=== PATIENT | male | born 1950 | race Caucasian/White ===

== ENCOUNTER → 2018-01-28 | Outpatient (CLI) | payer MEDICARE, OTHER | END | disposition home or self-care (01) | LOC: LAB SHORT 14:07 → LAB EV 14:07 | DX: J02.9 Acute pharyngitis, unspecified (principal) | CPT/HCPCS: 87070; 87077; 87185 ==

== ENCOUNTER 2019-05-08 12:12 | Inpatient (IN) | payer MEDICARE, OTHER ==
[~2019-05-08] VITALS: Ht 175.3 cm; Wt 83.1 kg
[2019-05-08 13:06] LABS: BASOPHILS ABSOLUTE AUTO 0.11 K/mm3 (0.00-0.23); BASOPHILS PERCENT AUTO 1 % (0-2); EOSINOPHILS ABSOLUTE AUTO 0.47 K/mm3 (0.00-0.68); EOSINOPHILS PERCENT AUTO 6 % (0-6); Hematocrit 49.5 % (37.0-53.0); Hemoglobin 17.1 g/dL (13.5-17.5); IMMATURE GRAN ABSOLUTE AUTO 0.04 K/mm3 (0.00-0.10); IMMATURE GRAN PERCENT AUTO 1 % (0-1); LYMPHOCYTES ABSOLUTE AUTO 2.52 K/mm3 (0.84-5.20); LYMPHOCYTES PERCENT AUTO 30 % (21-46); MONOCYTES ABSOLUTE AUTO 0.67 K/mm3 (0.16-1.47); MONOCYTES PERCENT AUTO 8 % (4-13); Mean Corpuscular HGB 31.3 pg (26.0-34.0); Mean Corpuscular HGB Conc 34.5 g/dL (31.5-36.5); Mean Corpuscular Volume 91 fL (80-100); Mean Platelet Volume 11.1 fL (9.1-12.4); NEUTROPHILS PERCENT AUTO 55 % (41-73); Platelet Count 203 K/mm3 (150-400); RDW Coefficient Variation 12.4 % (11.7-14.2); RDW Standard Deviation 40.4 fL (35.1-46.3); Red Blood Cell Count 5.46 M/mm3 (4.30-5.90); White Blood Cell Count 8.41 K/mm3 (4.00-11.30)
[2019-05-08 13:27] LABS: Alanine Aminotransfer (ALT/SGP 26 U/L (12-78); Albumin, Blood 4.2 g/dL (3.4-5.0); Albumin/Globulin Ratio 1.4 (0.8-1.8); Alk Phos 70 U/L (50-136); Anion Gap 9 mmol/L (6-16); Aspartate Aminotrans (AST/SGOT 17 U/L (12-37); Blood Urea Nitrogen 12 mg/dL (8-24); Bun/Creatinine Ratio 11.9 (12.0-20.0); CO2, Blood 21 mmol/L (21-32); Calcium, Blood 9.2 mg/dL (8.5-10.1); Chloride, Blood 111 mmol/L (98-108); Creatinine, Blood 1.01 mg/dL (0.60-1.20); Globulin, Blood 3.1 g/dL (2.2-4.0); Glomerular Filtration Rate >60 (60-); Glucose, Blood 132 mg/dL (70-99); Potassium, Blood 3.9 mmol/L (3.5-5.5); Sodium, Blood 141 mmol/L (136-145); Total Protein, Blood 7.3 g/dL (6.4-8.2); Troponin I <0.015 ng/mL (0.000-0.040)
--- NOTE | 2019-05-08 13:45 | NUR ---
PATIENT ARRIVED TO ROOM ICU 12 VIA HOSPITAL BED AFTER REPORT WAS CALLED TO THIS RN BY GABRIELA MANN, RN, [facility], PATIENT WAS PLACED ON HEART MONITOR, RIGHT GROIN/FEMORAL SITE C/D/I, 15 FR SHEATH STILL IN GROIN, LAST ACT WAS 386, PTT ORDERED AND WILL BE DRAWN, SHEATH TO BE PULLED WHEN PTT LESS THAN 180, PATIENT WAS INSTRUCTED TO LIE FLAT AND NOT RAISE HIS HEAD, VERBALIZED UNDERSTANDING, AT BEDSIDE, BOTH WERE ORIENTED TO ROOM AND NEW ENVIRONMENT, CALL LIGHT GIVEN AND EXPLAINED, ALL QUESTIONS ANSWERED, PATIENT HAD SIPS OF ICE WATER, CALL LIGHT IN REACH, WILL CONTINUE TO MONITOR.
[2019-05-08] MEDS ORDERED: ESOM20 PO (14:11)
--- NOTE | 2019-05-08 14:45 | NUR ---
PATIENT TO USE URINAL, ASSISTING, NOTIFIED THIS RN THAT THERE WAS SOME OOZING/BLEEDING AROUNG SHEATH/R GROIN SITE, SLIGHT OOZING NOTED, WASH CLOTH IN PLACE, PATIENT INSTRUCTED TO USE CALL LIGHT, WHEN HE FEELS WARMTH, BURNING, AND OTHER SENSATIONS AT GROIN SITE, CALL LIGHT IN REACH, WILL CONTINUE TO MONITOR.
--- NOTE | 2019-05-08 15:18 | NUR ---
GROIN SITE SHOWS NO MORE ACTIVE OOZING AT THIS TIME, PATIENT RESTING COMFORTABLY, DENIES PAIN, CHEST PAIN/PRESSURE, OR ANY KIND OF DISCOMFORT.
--- NOTE | 2019-05-08 15:49 | NUR ---
GROIN SITE OOZING AT THIS TIME, SMALL HEMATOMA NOTED ON INCISION SITE, DR. WATERMAN NOTIFIED, WILL COME TO BEDSIDE.
--- NOTE | 2019-05-08 16:00 | NUR ---
URIEL HAWTHORNE, [facility] AT BEDSIDE, TOOK ACT VIA I-STAT, RESULT 153, DR. WATERMAN ALSO AT BEDSIDE, DECISION WAS MADE TO PULL SHEATH, HALEY CLOSING DEVICE AT BEDSIDE, 4X4'S, SUTURE REMOVAL KIT, 15 FR SHEATH WAS PULLED BY URIEL HAWTHORNE, AT 1613 HOURS, AFTER PATIENT RECEIVED 25 MCG OF FENTANYL IV, MARINE HELD PRESSURE FOR 10 MINUTES, THEN THIS RN TOOK OVER AND HELD PRESSURE FOR ANOTHER 10-15 MINUTES, SWELLING OF HEMATOMA WAS MINIMIZED, BLEEDING STOPPED/HEMOSTASIS ACHIEVED AT 1640, NEW HALEY DEVICE APPLIED TO GROIN SITE AND OCCLUDED WITH OPSITE, PATIENT TOLERATED PROCEDURE WELL, STATED THAT HIS PAIN WAS "0.5" OF A SCALE FROM 0-10, INSTRUCTED TO HOLD PRESSURE ON SITE WHEN HE FEELS THE NEED TO COUGH, NEW GOWN APPLIED AND SHEETS CHANGED, DAUGHTER AT BEDSIDE, CALL LIGHT IN REACH, WILL CONTINUE TO MONITOR.
[2019-05-08 16:51] LABS: International Normalized Ratio 1.09; Prothrombin Time Results 11.5 Sec (9.7-11.5)
--- NOTE | 2019-05-08 17:19 | NUR ---
PATIENT PALCED IN SLIGHT REVERSED [place] POSITION TO EAT DINNER, DAUGHTER AT BEDSIDE ASSISTING WITH TRAY.
--- NOTE | 2019-05-08 17:49 | NUR ---
SHIFT SUMMARY REPORT: PATIENT IS RESTING COMFORTABLY AT THIS TIME AFTER EATING ALL OF HIS DINNER, REMAINS IN REVERSE [place], RIGHT GROIN SITE HAS HALEY DEVICE APPLIED WITH OPSITE, NO DRNG NOTED, NO HEMATOMA PALPABLE, SLIGHT BRUISING BELOW INCISION SITE, PATIENT DENIES PAIN AT SITE, REPORTS NO CHEST PAIN/PRESSURE, AFEBRILE, ON RA 99 % O2 SATURATION, NSR WITH HR IN 60'S TO 70'S, BLOOD PRESSURE IN 130'S, FOR DETAILS SEE ADMISSION AND SHIFT ASSESSMENT DOCUMENTATIONS AND NURSES NOTES, CALL LIGHT IN REACH, WILL CONTINUE TO MONITOR AND GIVE REPORT TO ONCOMING CENTER LINE CUTTER OPERATOR.
--- NOTE | 2019-05-08 19:27 | NUR ---
[place] of Care: Patient alert and oriented, lying flat in bed, visiting with family. States to have very mild chest pain/discomfort 0.3/10, that has came/went since leaving the seed analysis laboratory assistant. Michael dyspnea or SOB, VSS. Patient instructed to inform staff of any increase or change in chest pain/discomfort, and any onset of dyspnea/SOB. Rt groin arterial access site has ciara gauze and clear occlusive dressing in place. Dressing appears C/D/I. Groin site shows small hematoma beneath insertion site, but overall soft and shows no s/s of active bleeding. Day shift RN states this hematoma has been present and stayed same size since sheath removal. Patient instructed to remain lying flat in bed, to not left head/neck, and keep rt leg immobile. Plan to start increasing patient's 's HOB at approc 2030hr if groin site remains stable. Peripheral IV's x2 to lt arm patent and intact. Call light in reach. Will continue to monitor for pain, safety, comfort.
--- NOTE | 2019-05-09 06:29 | NUR ---
Shift Summary: Patient slept well throughout shift. No changes to chest pain/pressure throughout shift, continues to rate at 0.3/10. Continues to deny dyspnea/SOB. VSS, O2-94-96% on RA. Rt groin site remains wnl, no s/s of active bleeding or hematoma noted. HOB elevated several times throughout shift, but patient mostly wished to lay flat and sleep. Voiding using urinal in bed without difficulty. Call light in reach, makes needs known. Will continue to monitor until report to day shift RN.
--- NOTE | 2019-05-09 08:30 | NUR ---
INITIAL ASSESSMENT PATIENT RESTING IN BED QUIETLY UPON ENTERING ROOM. PATIENT ALERT AND ORIENTED X 4, AFEBRILE. PATIENT HAS NO COMPLAINTS OF PAIN. PATIENT SATTING 90% AND GREATER ON RA. LUNGS CLEAR T/O, LOWER LOBES DIMINISHED. PATIENT IN SINUS SONIA/ SINUS ARRHYTHMIA. HR 50S TO 70S. BP STABLE. PULSES STRONG. GI WNL. WNL. R GROIN SITE REMAINS STABLE. SMALL BRUISE AND HEMATOMA NOTED- UNCHANGED PER RANCH RIDER RN. NO BLEEDING NOTED. IVS FLUSHED AND SALINE LOCKED. AT BEDSIDE. BED LOW, CALL LIGHT IN REACH. WILL CONTINUE TO MONITOR PATIENT FREQUENTLY THROUGHOUT SHIFT.
[2019-05-09 10:36] LABS: BASOPHILS ABSOLUTE AUTO 0.05 K/mm3 (0.00-0.23); BASOPHILS PERCENT AUTO 0 % (0-2); EOSINOPHILS ABSOLUTE AUTO 0.08 K/mm3 (0.00-0.68); EOSINOPHILS PERCENT AUTO 1 % (0-6); Hematocrit 47.3 % (37.0-53.0); IMMATURE GRAN ABSOLUTE AUTO 0.05 K/mm3 (0.00-0.10); IMMATURE GRAN PERCENT AUTO 0 % (0-1); LYMPHOCYTES ABSOLUTE AUTO 1.29 K/mm3 (0.84-5.20); LYMPHOCYTES PERCENT AUTO 12 % (21-46); MONOCYTES ABSOLUTE AUTO 0.91 K/mm3 (0.16-1.47); MONOCYTES PERCENT AUTO 8 % (4-13); Mean Corpuscular HGB 31.3 pg (26.0-34.0); Mean Corpuscular HGB Conc 33.8 g/dL (31.5-36.5); Mean Corpuscular Volume 93 fL (80-100); Mean Platelet Volume 10.8 fL (9.1-12.4); NEUTROPHILS ABSOLUTE AUTO 8.74 K/mm3 (1.96-9.15); NEUTROPHILS PERCENT AUTO 79 % (41-73); Platelet Count 192 K/mm3 (150-400); RDW Coefficient Variation 12.5 % (11.7-14.2); RDW Standard Deviation 42.7 fL (35.1-46.3); Red Blood Cell Count 5.11 M/mm3 (4.30-5.90); White Blood Cell Count 11.12 K/mm3 (4.00-11.30)
[2019-05-09 10:58] LABS: CHOL/HDL RATIO 3.6; Cholesterol 175 mg/dL (50-200); HDL Cholesterol 49 mg/dL (>39); LDL/HDL RATIO 2.1; Low Density Lipoprotein Chol 104 mg/dL (0-110); Triglycerides 112 mg/dL (30-160); Very Low Density Lipoprot Chol 22 mg/dL (6-32)
--- NOTE | 2019-05-09 11:15 | NUR ---
PATIENT HAS BEEN OOB TO CHAIR. R FEMORAL SITE REMAINS WNL- NO CHANGES SINCE INITITAL ASSESSMENT. WILL CONTINUE TO MONITOR.
--- NOTE | 2019-05-09 12:01 | NUR ---
SPECIAL PROCEDURE TECH IN ROOM WITH PATIENT AT THIS TIME. PATIENT REMAINS ALERT AND ORIENTED X 4, AFEBRILE. PATIENT HAS NO COMPLAINTS OF PAIN OR DISCOMFORT AT THIS TIME. PATIENT REMAINS SATTING 90% AND GREATER ON RA. LUNGS CLEAR THROUGHOUT. PATIENT HAS SINUS ARRYTHMIA, HR 50S TO 70S. BP STABLE. ANTI-EMBOLISM STOCKINGS IN PLACE. PATIENT TOLERATING MEALS WELL TODAY. NO COMPLAINTS OF NAUSEA. GOOD UO. PATIENT OOB TO CHAIR THIS SHIFT WITH SBA. NO CHANGE TO R FEMORAL SITE- REMAINS WNL. NO OTHER ACUTE CHANGES TO NOTE ON AT THIS TIME. WILL CONTINUE TO MONITOR.
--- NOTE | 2019-05-09 13:06 | NUR ---
Echocardiogram completed.
--- NOTE | 2019-05-09 17:00 | NUR ---
PATIENT RESTING QUIETLY IN BED, VISITING WITH UPON ENTERING ROOM. PATIENT REMAINS AFEBRILE. NO COMPLAINTS OF PAIN OR DISCOMFORT. R FEMORAL SITE BRUISING SLIGHTLY DARKER AND LARGER THAN AT PREVIOUS ASSESSMENT. NO INCREASE IN HEMATOMA AND NO BLEEDING NOTED. PATIENT REMAINS IN SINUS ARRHYTHMIA, HR 50S TO 70S. BP STABLE. NO OTHER ACUTE CHANGES TO NOTE ON AT THIS TIME. WILL CONTINUE TO MONITOR.
--- NOTE | 2019-05-09 18:36 | NUR ---
SHIFT SUMMARY PATIENT REMAINED ALERT AND ORIENTED T/O SHIFT. PATIENT REMAINED AFEBRILE. PATIENT SBA IN ROOM WITH EITHER OR STAFF. PATIENT REMAINED SATTING 90% AND GREATER ON RA. PATIENT IN SB TO SINUS ARRHYTHMIA. HR 50S TO 70S, BP STABLE. GI WNL. PATIENT HAS GOOD APPETITE. PATIENT HAD MEDIUM, HARD, BROWN BM THIS SHIFT. PATIENT VOIDED ADEQUATE AMOUNT THIS SHIFT. R FEMORAL SITE REMAINS WNL. SMALL HEMATOMA NOTED, HOWEVER HAS REMAINED UNCHANGED SINCE SHIFT HANDOFF THIS AM. SMALL INCREASE IN BRUISING WELL. NO BLEEDING THIS SHIFT. IVS REMAIN SALINE LOCKED. BED LOW, CALL LIGHT IN REACH. AT BEDSIDE. WILL BE GIVING REPORT TO POULTRY OFFAL WORKER NURSE SHORTLY.
--- NOTE | 2019-05-09 19:26 | NUR ---
START OF SHIFT: REPORT FROM CHANTAL RN. PT A+O X4, VSS. RIGHT GROIN ASSESSED BY BOTH RN'S AND REPORTED SAME AND WITH NO CHANGES FROM THIS AM. PT WITH CALL LIGHT IN HAND. SPOUSE AT BEDSIDE.
--- NOTE | 2019-05-09 19:56 | NUR ---
START OF SHIFT: REPORT FROM CHANTAL TREVINO. PT A+O X4, VSS. R GROIN ASSESSED AND WITH BRUISING BUT IS SOFT AND NO DRAINAGE TO DRESSING. CHANTAL TREVINO STATED SITE WITH NO CHANGES FROM THIS AM. PT WITH CALL LIGHT. SPOUSE AT BEDSIDE.
--- NOTE | 2019-05-09 22:03 | NUR ---
R GROIN CHECK. NO CHANGES. REMAINS SOFT WITH NO SWELLING OR DRAINAGE NOTED.
--- NOTE | 2019-05-10 02:07 | NUR ---
LAB DRAWN: PT AWAKENED EASILY. PLEASANT, NO COMPLAINTS. STATED LEWIS PAIN DOWN TO 2/10. R GROIN SITE REMAINS UNCHANGED FROM INITIAL ASSESSMENT. PT SPOUSE REMAINS IN ROOM.
--- NOTE | 2019-05-10 06:23 | NUR ---
SHIFT SUMMARY: PT RESTED T/O NOC WITHOUT ANY C/O PAIN, CP, SOB, OR ANY OTHER DISCOMFORTS. VSS. GROIN SITE REMAINED UNCHANGED FROM START OF SHIFT. MN REMAINED IN SINUS ARRHYTHMIA WITHOUT S/S.
--- NOTE | 2019-05-10 08:35 | NUR ---
PT AWAKE AND ALERT SITTING UP IN BED. DENIES ALL C/O, DENIES CHEST PAIN/PRESSURE. RIGHT GROIN STABLE WITH SOME BRUISING NOTED TO GROIN AREA; NO SWELLING, HEMATOMA, OR BLEEDING. POSSIBLE DC HOME TODAY.
--- NOTE | 2019-05-10 09:14 | NUR ---
DR WATERMAN INTO SEE PT. PT TO BE DC'D HOME. PT WALKED AROUND UNIT W/O ANY DIFFICULTIES.
[2019-05-10] MEDS ORDERED: LOSA50 PO (10:33)
[2019-05-10] MEDS ORDERED: ATOR80 PO (10:56)
[2019-05-10] MEDS ORDERED: Aspir-Trin325 MG PO (10:56)
[2019-05-10] MEDS ORDERED: METO25 PO (10:57)
[2019-05-10] MEDS ORDERED: Nitrostat0.4 MG SL (10:59)
[2019-05-10] MEDS ORDERED: BRILINTA90 MG PO (10:59)
[2019-05-10] MEDS ORDERED: ACET325 PO (11:30)
--- NOTE | 2019-05-10 11:53 | NUR ---
DISCHARGE INSTRUCTIONS: WRITTEN AND VERBAL DISCHARGE INSTRUCTIONS GIVEN TO PT AND HIS (RACHAEL). DISCUSSED ALL NEW MEDICATIONS. OFFERRED FOR PHARMACY TO MEET WITH PT FOR NEW MEDICATION EDUCATION. PT DECLINED A THIS TIME. IV'S D/C'D, CATHS INTACT. SITES WRAPPED WITH COBAN. DISCHARGE ACTIVITY INSTRUCTIONS REVIEWED FOR POST FEMORAL ANGIOGRAM AND WRITTEN INSTRUCTIONS SENT WITH PT. PT DISCHARGED VIA W/C PER GRACIELA MARKS TO PRIVATE CAR.
== END 2019-05-10 11:55 | disposition home or self-care (01) | DRG 247 ==
LOC: ER 12:12 → ICUW 12:13
PROVIDERS: Emergency Medicine; ADMIT Internal Medicine Clinical Cardiac Electrophysiology
PROC: 027034Z Dilation of Coronary Artery, One Artery with Drug-eluting Intraluminal Device, Percutaneous Approach (ICD-10-PCS; principal; 2019-05-08)
PROC: 4A023N7 Measurement of Cardiac Sampling and Pressure, Left Heart, Percutaneous Approach (ICD-10-PCS; 2019-05-08)
PROC: B2111ZZ Fluoroscopy of Multiple Coronary Arteries using Low Osmolar Contrast (ICD-10-PCS; 2019-05-08)
DX: I21.09 ST elevation (STEMI) myocardial infarction involving other coronary artery of anterior wall (principal); Q21.1 Atrial septal defect; I10 Essential (primary) hypertension; E78.00 Pure hypercholesterolemia, unspecified; J44.9 Chronic obstructive pulmonary disease, unspecified; K21.9 Gastro-esophageal reflux disease without esophagitis; Z88.8 Allergy status to other drugs, medicaments and biological substances; E78.5 Hyperlipidemia, unspecified; Z79.82 Long term (current) use of aspirin
CPT/HCPCS: 36415; 71045; 80053; 80061; 83036; 84484; 85025; 85347; 85610; 85730; 93005; 93010; 93458; 99152; 99153; 99285-25; A9270; C1725; C1769; C1874; C1887; C1894; C8929; C9606; J0461; J1644; J2250; J3010; J3246; J7030; Q9957; Q9967

== ENCOUNTER 2020-09-10 05:56 | Day surgery (SDC) | payer MEDICARE, OTHER ==
[~2020-09-10] VITALS: Ht 170.2 cm; Wt 84.7 kg
[~2020-09-10 05:56] MED LIST: ACET325 PO; ATOR20 PO; ATOR80 PO; Aspir-Trin325 MG PO; BRILINTA90 MG PO; ESOM20 PO; LATA.005SO BOTHEYES; LOSA50 PO; METO25 PO; Nitrostat0.4 MG SL
--- NOTE | 2020-09-10 07:03 | NUR ---
Ambulatory in Day Surgery History, Chart, Medications and Allergies reviewed before start of procedure. Lungs clear T/O to Auscultation. Pre-Op teaching done. Pt verbalizes understanding.
--- NOTE | 2020-09-10 10:46 | NUR ---
PT ARRIVED FROM SURGERY AT 1030 ON 09/10/2020. HE HAD A RIGHT TOTAL HIP REPLACEMENT. HE IS ALERT AND ORIENTED X4. VITAL SIGNS ARE WNL AND IS ON RA. PAIN IS CONTROLLED AT THIS TIME. BOTH LEFT AND RIGHT AQUACEL ARE C/D/I. PT DENIES NUMBNESS AND TINGLING AT THIS TIME. HE HAS FULL SENSATIONS. NO NAUSEA OR VOMITING. PT IS CURRENTLY LAYING IN BED AND IS TOLERATING PO DRINKS AND CRACKERS. IS IN THE ROOM WITH HIM. WILL CONTINUE TO MONITOR PAIN AND HIS VITALS.
--- NOTE | 2020-09-10 18:27 | NUR ---
SHIFT SUMMARY: POD 0 RIGHT TOTAL HIP REPLACEMENT PT IS ALERT AND ORIENTED X4. VITAL SIGNS ARE WNL AND IS ON RA. HE DOES NOT COMPLAIN OF PAIN AT THIS TIME. I HAVE ONLY GIVEN HIM WHAT HAS BEEN SCHEDULED WHICH IS THE TORADOL AND TYLENOL. HE HAS GOTTEN UP WITH PHYSICAL THERAPY AND WITH ME IN THE HALLWAY. AQUACEL ON BOTH LEGS ARE C/D/I. THE BIGGER AQUACEL IS ON THE RIGHT HIP. HE IS A VERY PLEASANT PATIENT TO HAVE. IS IN THE ROOM AND WILL BE LEAVING AROUND 7. CALL LIGHT IS WITHIN REACH. THE PLAN IS TO CONTINUE TO WORK WITH PHYSICAL THERAPY.
[2020-09-11 04:43] LABS: BASOPHILS ABSOLUTE AUTO 0.03 K/mm3 (0.00-0.23); BASOPHILS PERCENT AUTO 0 % (0-2); EOSINOPHILS ABSOLUTE AUTO 0.12 K/mm3 (0.00-0.68); EOSINOPHILS PERCENT AUTO 1 % (0-6); Hematocrit 37.6 % (37.0-53.0); Hemoglobin 12.9 g/dL (13.5-17.5); IMMATURE GRAN ABSOLUTE AUTO 0.08 K/mm3 (0.00-0.10); IMMATURE GRAN PERCENT AUTO 1 % (0-1); LYMPHOCYTES ABSOLUTE AUTO 1.21 K/mm3 (0.84-5.20); LYMPHOCYTES PERCENT AUTO 10 % (21-46); MONOCYTES ABSOLUTE AUTO 1.13 K/mm3 (0.16-1.47); MONOCYTES PERCENT AUTO 9 % (4-13); Mean Corpuscular HGB 31.8 pg (26.0-34.0); Mean Corpuscular HGB Conc 34.3 g/dL (31.5-36.5); Mean Corpuscular Volume 93 fL (80-100); Mean Platelet Volume 10.6 fL (9.1-12.4); NEUTROPHILS ABSOLUTE AUTO 10.08 K/mm3 (1.96-9.15); NEUTROPHILS PERCENT AUTO 80 % (41-73); Platelet Count 157 K/mm3 (150-400); RDW Coefficient Variation 12.1 % (11.7-14.2); RDW Standard Deviation 41.1 fL (35.1-46.3); Red Blood Cell Count 4.06 M/mm3 (4.30-5.90); White Blood Cell Count 12.65 K/mm3 (4.00-11.30)
--- NOTE | 2020-09-11 04:45 | NUR ---
SHIFT SUMMARY PT IS A/O X4. SBA WITH FWW TO AMBULATE. PT TOLERATING PO INTAKE, VOIDING, AND AMBULATING WELL. PAIN MANAGED WELL WITH TYLENOL/TORADOL AND OXY X1 FOR BREAKTHROUGH PAIN. BP WAS SLIGHTLY LOW WITH AM VS, HOWEVER PT DENIES DIZZINESS/LIGHTHEADEDNESS. DRESSINGS CDI WITH POLAR PACK IN PLACE. PT RESTING WITH CALL LIGHT IN REACH AT THIS TIME.
[2020-09-11 05:06] LABS: Anion Gap 4 mmol/L (6-16); Blood Urea Nitrogen 22 mg/dL (8-24); Bun/Creatinine Ratio 19.8 (12.0-20.0); CO2, Blood 28 mmol/L (21-32); Calcium, Blood 8.5 mg/dL (8.5-10.1); Chloride, Blood 107 mmol/L (98-108); Creatinine, Blood 1.11 mg/dL (0.60-1.20); Glomerular Filtration Rate >60 (60-); Glucose, Blood 113 mg/dL (70-99); Potassium, Blood 3.8 mmol/L (3.5-5.5); Sodium, Blood 139 mmol/L (136-145)
[2020-09-11] MEDS ORDERED: Aspir 8181 MG PO (08:46)
[2020-09-11] MEDS ORDERED: Percocet 5-3251 EACH PO (08:54)
--- NOTE | 2020-09-11 09:48 | NUR ---
DISCHARGE PT DISCHARGED HOME FROM UNIT AT APROX 0950. PT GIVEN WRITTEN AND VERBAL DISCHARGE INSTRUCTIONS AND VERBALIZED UNDERSTANDING OF THESE INSTUCTIONS. IV REMOVED, PT TOLERATED WELL. WHEELCHAIR TO CAR.
--- NOTE | 2020-09-12 10:03 | NUR ---
09/12/20 1003 Leslie Leblanc VERIFICATIONS: EDIT CHART.
== END 2020-09-11 09:42 | disposition home or self-care (01) ==
LOC: ORSCMMR 05:56 → ORD 07:30 → SURS 10:41 → ORSCMMR 09-11 09:42 → SURS 09-11 09:42
PROVIDERS: Orthopaedic Surgery
PROC: 0SR90JA Replacement of Right Hip Joint with Synthetic Substitute, Uncemented, Open Approach (ICD-10-PCS; principal; 2020-09-10 07:30)
PROC: 8E0YXBZ Computer Assisted Procedure of Lower Extremity (ICD-10-PCS; principal; 2020-09-10 07:30)
DX: M16.11 Unilateral primary osteoarthritis, right hip (principal); I10 Essential (primary) hypertension; E78.5 Hyperlipidemia, unspecified; K21.9 Gastro-esophageal reflux disease without esophagitis; I25.2 Old myocardial infarction; Z79.899 Other long term (current) drug therapy; Z87.891 Personal history of nicotine dependence
CPT/HCPCS: 36415; 72170; 80048; 85025; 88300; 97110; 97116; 97161; 97530; A9270; A9270-GY; C1776; J0171; J0690; J0735; J1100; J1885; J2405; J2704; J2795; J3010; J7120

== ENCOUNTER → 2020-12-05 | Outpatient (CLI) | payer MEDICARE, OTHER ==
[~2020-12-05] MED LIST changes: +Aspir 8181 MG PO; +Percocet 5-3251 EACH PO
[2020-12-05 11:51] LABS: Anion Gap 6 mmol/L (6-16); Blood Urea Nitrogen 18 mg/dL (8-24); Bun/Creatinine Ratio 18.7 (12.0-20.0); CO2, Blood 28 mmol/L (21-32); Calcium, Blood 8.7 mg/dL (8.5-10.1); Chloride, Blood 110 mmol/L (98-108); Creatinine, Blood 0.96 mg/dL (0.60-1.20); Glomerular Filtration Rate >60 (60-); Glucose, Blood 103 mg/dL (70-99); Potassium, Blood 4.1 mmol/L (3.5-5.5); Sodium, Blood 144 mmol/L (136-145)
== END | disposition home or self-care (01) ==
LOC: OLS 08:08 → RAD SHORT 08:08 → LAB SHORT 08:08
PROVIDERS: Physician Assistant
DX: N40.0 Benign prostatic hyperplasia without lower urinary tract symptoms (principal); I10 Essential (primary) hypertension
CPT/HCPCS: 36415; 80048; 84153

== ENCOUNTER → 2021-09-25 | Outpatient (CLI) | payer MEDICARE, OTHER | END | disposition home or self-care (01) | LOC: LAB SHORT 16:10 → LAB 16:10 | DX: H65.02 Acute serous otitis media, left ear (principal) | CPT/HCPCS: 87070; 87077; 87186; 87205 ==

== ENCOUNTER 2025-01-29 19:26 | Inpatient (IN) | payer MEDICARE, OTHER ==
[~2025-01-29] VITALS: Ht 170.2 cm; Wt 85.1 kg
[2025-01-29 20:02] LABS: BASOPHILS PERCENT AUTO 1 % (0-2); EOSINOPHILS ABSOLUTE AUTO 0.39 K/mm3 (0.00-0.68); EOSINOPHILS PERCENT AUTO 4 % (0-6); Hematocrit 52.8 % (37.0-53.0); Hemoglobin 18.3 g/dL (13.5-17.5); IMMATURE GRAN ABSOLUTE AUTO 0.04 K/mm3 (0.00-0.10); IMMATURE GRAN PERCENT AUTO 0 % (0-1); LYMPHOCYTES ABSOLUTE AUTO 2.67 K/mm3 (0.84-5.20); LYMPHOCYTES PERCENT AUTO 29 % (21-46); MONOCYTES ABSOLUTE AUTO 0.74 K/mm3 (0.16-1.47); MONOCYTES PERCENT AUTO 8 % (4-13); Mean Corpuscular HGB 31.9 pg (26.0-34.0); Mean Corpuscular HGB Conc 34.7 g/dL (31.5-36.5); Mean Corpuscular Volume 92 fL (80-100); Mean Platelet Volume 11.1 fL (9.1-12.4); NEUTROPHILS ABSOLUTE AUTO 5.17 K/mm3 (1.96-9.15); NEUTROPHILS PERCENT AUTO 57 % (41-73); Platelet Count 185 K/mm3 (150-400); RDW Coefficient Variation 12.6 % (11.7-14.2); RDW Standard Deviation 42.6 fL (35.1-46.3); Red Blood Cell Count 5.74 M/mm3 (4.30-5.90); White Blood Cell Count 9.11 K/mm3 (4.00-11.30)
[2025-01-29 20:22] LABS: Albumin, Blood 4.3 g/dL (3.4-5.0); Albumin/Globulin Ratio 1.3 (0.8-1.8); Bilirubin, Total 0.8 mg/dL (0.1-1.0); Bun/Creatinine Ratio 20.7 (12.0-20.0); Calcium, Blood 9.7 mg/dL (8.5-10.1); Creatinine, Blood 0.82 mg/dL (0.60-1.20); Globulin, Blood 3.3 g/dL (2.2-4.0); Potassium, Blood 3.5 mmol/L (3.5-5.5); Total Protein, Blood 7.6 g/dL (6.4-8.2)
[2025-01-29] MEDS ORDERED: Aspirin 81 MG TabEC PO ONE (20:45)
[2025-01-29] MEDS ORDERED: Nitroglycerin 0.4 MG SUBL SL PRN (23:15)
[2025-01-29] MEDS ORDERED: TIMO10T (23:39)
[2025-01-30] VITALS (7 sets, daily range): BP systolic 131–161; BP diastolic 71–94
[2025-01-30] MEDS ORDERED: Dose Adjust by Pharmacy XX STA ×2 (00:04→07:50)
[2025-01-30] MEDS ORDERED: Heparin Sodium,Porcine/0.5 NS 500 ML IV SCH (00:05)
[2025-01-30 00:13] LABS: Anti-Xa UFH, PHA Monitoring <0.10 IU/mL; International Normalized Ratio 1.02; Prothrombin Time Results 10.9 Sec (9.7-11.5)
[2025-01-30] MEDS ORDERED: Clopidogrel Bisulfate 300 MG TABLET PO ONE (02:00)
[2025-01-30 03:11] LABS: BASOPHILS ABSOLUTE AUTO 0.08 K/mm3 (0.00-0.23); BASOPHILS PERCENT AUTO 1 % (0-2); EOSINOPHILS ABSOLUTE AUTO 0.33 K/mm3 (0.00-0.68); EOSINOPHILS PERCENT AUTO 4 % (0-6); Hematocrit 46.8 % (37.0-53.0); Hemoglobin 16.3 g/dL (13.5-17.5); IMMATURE GRAN ABSOLUTE AUTO 0.02 K/mm3 (0.00-0.10); IMMATURE GRAN PERCENT AUTO 0 % (0-1); LYMPHOCYTES ABSOLUTE AUTO 1.76 K/mm3 (0.84-5.20); LYMPHOCYTES PERCENT AUTO 22 % (21-46); MONOCYTES ABSOLUTE AUTO 0.71 K/mm3 (0.16-1.47); MONOCYTES PERCENT AUTO 9 % (4-13); Mean Corpuscular HGB 31.3 pg (26.0-34.0); Mean Corpuscular HGB Conc 34.8 g/dL (31.5-36.5); Mean Corpuscular Volume 90 fL (80-100); Mean Platelet Volume 10.4 fL (9.1-12.4); NEUTROPHILS ABSOLUTE AUTO 5.12 K/mm3 (1.96-9.15); NEUTROPHILS PERCENT AUTO 64 % (41-73); Platelet Count 153 K/mm3 (150-400); RDW Coefficient Variation 12.4 % (11.7-14.2); RDW Standard Deviation 40.7 fL (35.1-46.3); Red Blood Cell Count 5.21 M/mm3 (4.30-5.90); White Blood Cell Count 8.02 K/mm3 (4.00-11.30)
[2025-01-30 03:31] LABS: Albumin, Blood 3.6 g/dL (3.4-5.0); Albumin/Globulin Ratio 1.3 (0.8-1.8); Bilirubin, Total 0.9 mg/dL (0.1-1.0); Bun/Creatinine Ratio 13.7 (12.0-20.0); Calcium, Blood 8.6 mg/dL (8.5-10.1); Creatinine, Blood 0.88 mg/dL (0.60-1.20); Globulin, Blood 2.7 g/dL (2.2-4.0); Magnesium, Blood 2.2 mg/dL (1.6-2.4); Potassium, Blood 3.6 mmol/L (3.5-5.5); Total Protein, Blood 6.3 g/dL (6.4-8.2)
--- NOTE | 2025-01-30 06:55 | NUR ---
SHIFT SUMMARY: [facility] ER AROUND 0100 VIA GURNEY. PT TRANSFERRED HIMSELF TO THE HOSPITAL BED. PT ORIENTED TO ROOM AND CALL LIGHT SYSTEM. VSS ON RA. SR 60'S-70'S. HAS MILD CHEST PAIN AND PRESSURE, BUT STATES MUCH BETTER THAN WHEN HE ARRIVED AT HOSPITAL. DENIES PAIN ANYWHERE ELSE. REMAINED NPO THIS SHIFT FOR POSSIBLE PROCEDURE TODAY. HEPARIN GTT INFUSING AND TITRATED PER ORDERS. PT IS USING URINAL INDEPENDENTLY AT BEDSIDE. VOIDING SMALL AMOUNTS OF CONCENTRATED URINE. NO BM THIS SHIFT. RESIDENT AWARE OF CRITICAL TROPONINS. BED IN LOWEST POSITION, CALL LIGHT WITHIN REACH. CALLS APPROPRIATELY AND IS ABLE TO ADVOCATE NEEDS EFFECTIVELY.
[2025-01-30] MEDS ORDERED: Aspirin 81 MG Chew PO SCH (09:00)
[2025-01-30] MEDS ORDERED: Atorvastatin 40 MG Tab PO SCH (09:00)
[2025-01-30] MEDS ORDERED: Metoprolol Tartrate 25 MG Tab PO SCH (09:00)
--- NOTE | 2025-01-30 09:26 | NUR ---
DR. MONTEIRO AT BEDSIDE FOR DISCUSSION/EVALUATION, INFORMED CONSENT FOR ANGIO.
[2025-01-30] MEDS ORDERED: Aspirin 81 MG Chew PO ONE (09:30)
[2025-01-30] MEDS ORDERED: Heparin Sodium 1000 Units/ML 10ML MDV ONE ×2 (10:58→11:50)
[2025-01-30] MEDS ORDERED: Verapamil HCL 2.5 MG/ML 2ML Injection ONE (10:58)
[2025-01-30] MEDS ORDERED: NS 1,000 ML IV ONE ×2 (10:59→11:05)
[2025-01-30] MEDS ORDERED: NS 250 ML IV ONE (10:59)
[2025-01-30] MEDS ORDERED: Nitroglycerin 2 MG/20 ML BTL ONE (10:59)
--- NOTE | 2025-01-30 10:59 | NUR ---
PT TO CHUTE FEEDER VIA BED, ACCOMPANIED BY STAFF AND PT'S .
[2025-01-30] MEDS ORDERED: Midazolam HCl 1MG / ML 2ML Vial ONE (11:05)
[2025-01-30] MEDS ORDERED: FentaNYL Citrate 50 MCG/ML 2 ML Injection ONE (11:05)
[2025-01-30] MEDS ORDERED: Ticagrelor 90 MG TABLET ONE (11:45)
--- NOTE | 2025-01-30 13:10 | NUR ---
POST CATH PT RETURN FROM LANGUAGE INSTRUCTOR 1248. EKG COMPLETED. TR BAND PLACED AT 1233, TO RIGHT RADIAL ACT >200, WILL BEGIN DEFLATION AT 1433. PT A/O X4. DENIES CP, PRESSURE, SOB. SB-SR 50-60S WITH OCCASIONAL PVC. LUNCH BROUGHT TO BEDSIDE.
--- NOTE | 2025-01-30 18:07 | NUR ---
TR BAND EVALUATION DR. ALCOCER AT BEDSIDE FOR TR BAND EVALUATION AFTER REBLEEDING. BP CUFF INFLATED TO 100MMHG AT 1805. INSTRUCTIONS TO MAINTAIN THE PRESSURE UNTIL 1825 AND THEN RELEASE 10MMHG/1ML FROM TR BAND UPON ASSESSMENT. CURRENT TR BAND INFLATION 8ML.
--- NOTE | 2025-01-30 19:29 | NUR ---
SHIFT SUMMARY TR BAND, REBLEED. REINFLATED AND BP CUFF APPLIED. RELEASING 10MMHG/1ML Q 10 MINUTES BEGINNING AT 1805. 1805 100MMHG/8 ML 1836 90 MMHG/7ML 1848 80MMHG/6ML 1900 70 MMHG/5ML 1910 60 MMHG/4 ML 1920 50 MMHG/3 ML NO S/S BLEEDING AT THIS TIME
[2025-01-30] MEDS ORDERED: Acetaminophen 325 MG TABLET PO PRN (19:50)
[2025-01-30] MEDS ORDERED: Ticagrelor 90 MG TABLET PO SCH (20:00)
[2025-01-31 03:22] VITALS: BP 130/67
--- NOTE | 2025-01-31 04:40 | NUR ---
PATIENT SUMMURY: A/O X4. RA WITH SATURATION > 90. ON TELE, NORMAL SINUS TO SINUS SONIA 58.BP STABLE WITH MAP>65. EXTENDED RECOVERY NEEDED FOR RIGHT RADIAL ANGIO SITE D/T HEMATOMA OCCURRING ON . SITE RECOVERED WITHOUT FURTHER COMPLICATION AROUND 1999. TR BAND REMOVED AT 2099. MILD OOZING AT PUNCTURE SITE. SWELLING ON FOREARM DECREASED FROM SHIFT CHANGE. DISCOLORATION NOTED DISTAL AND PROXIMAL TO SITE. DRESSING INTACT. ARMBOARD IN PLACE. PULSES STRONG DISTAL TO SITE. PT EDUCATED ON MOVEMENT RESTRICTION FOR PULLING/MOVING/LIFTING. MORNING EKG DONE PER ORDER. CALL LIGHT IS WITHIN REACH AND BED IS AT THE LOWEST POSITON.
[2025-01-31 04:48] LABS: BASOPHILS ABSOLUTE AUTO 0.06 K/mm3 (0.00-0.23); BASOPHILS PERCENT AUTO 1 % (0-2); EOSINOPHILS PERCENT AUTO 5 % (0-6); Hematocrit 46.5 % (37.0-53.0); Hemoglobin 16.2 g/dL (13.5-17.5); IMMATURE GRAN ABSOLUTE AUTO 0.03 K/mm3 (0.00-0.10); IMMATURE GRAN PERCENT AUTO 0 % (0-1); LYMPHOCYTES ABSOLUTE AUTO 1.58 K/mm3 (0.84-5.20); LYMPHOCYTES PERCENT AUTO 20 % (21-46); MONOCYTES ABSOLUTE AUTO 0.89 K/mm3 (0.16-1.47); MONOCYTES PERCENT AUTO 11 % (4-13); Mean Corpuscular HGB 31.8 pg (26.0-34.0); Mean Corpuscular HGB Conc 34.8 g/dL (31.5-36.5); Mean Corpuscular Volume 91 fL (80-100); Mean Platelet Volume 10.8 fL (9.1-12.4); NEUTROPHILS ABSOLUTE AUTO 5.16 K/mm3 (1.96-9.15); NEUTROPHILS PERCENT AUTO 64 % (41-73); Platelet Count 153 K/mm3 (150-400); RDW Coefficient Variation 12.6 % (11.7-14.2); RDW Standard Deviation 41.6 fL (35.1-46.3); White Blood Cell Count 8.12 K/mm3 (4.00-11.30)
[2025-01-31 05:08] LABS: Anion Gap 11 mmol/L (3-11); Blood Urea Nitrogen 13 mg/dL (8-24); Bun/Creatinine Ratio 15.9 (12.0-20.0); CHOL/HDL RATIO 4.4; CO2, Blood 24 mmol/L (21-32); Calcium, Blood 8.5 mg/dL (8.5-10.1); Chloride, Blood 108 mmol/L (98-108); Cholesterol 181 mg/dL (50-200); Creatinine, Blood 0.82 mg/dL (0.60-1.20); Glomerular Filtration Rate 92 (60-); Glucose, Blood 112 mg/dL (70-99); HDL Cholesterol 41 mg/dL (>39); LDL/HDL RATIO 2.9; Low Density Lipoprotein Chol 117 mg/dL (0-110); Potassium, Blood 3.5 mmol/L (3.5-5.5); Sodium, Blood 139 mmol/L (136-145); Triglycerides 113 mg/dL (30-160); Very Low Density Lipoprot Chol 22 mg/dL (6-32)
--- NOTE | 2025-01-31 07:25 | NUR ---
ASSUMPTION NOTE: THIS RN TO ASSUME CARE. PATIENT RESTING IN BED, EASILY AROUSABLE. AT BEDSIDE. PATIENT DENYING ANY NEEDS AT THIS TIME BUT IS WONDERING WHEN HE WILL BE ABLE TO GO HOME. NOTIFIED RETAIL RECEIVING CLERK NEEDS TO GET INSURANCE FIGURED OUT REGARDING MEDICATION & MAMMOGRAPHER TO SIGN OFF. HAS CALL LIGHT WITHIN REACH & BED IN LOWEST POSITION.
[2025-01-31 07:57] VITALS: BP 148/86
--- NOTE | 2025-01-31 08:54 | NUR ---
JEWELRY BENCH WORKER ROUND: JEWELRY BENCH WORKER TO BEDSIDE AND CHATTED WITH PATIENT REGARDING DISCHARGE AND NEW MEDCIATIONS TO GET STARTED. AWARE THAT BRILINTA COUPON WAS GIVEN & POSSIBLE SAMPLES WILL BE SENT HOME WITH PATIENT.
[2025-01-31] MEDS ORDERED: Clopidogrel Bisulfate 75 MG Tab PO SCH (09:00)
[2025-01-31] MEDS ORDERED: Losartan Potassium 25 MG Tab PO SCH (09:00)
--- NOTE | 2025-01-31 10:39 | NUR ---
MD ROUNDED: MD ROUNDED AND DISCHARGE ORDERS WERE PLACED. PATIENT AWARE TO GET DRESSED SHORTLY AND MEDICATION LIST TO BE FAXED TO [facility].
[2025-01-31] MEDS ORDERED: CARV3.125 PO (10:56)
[2025-01-31] MEDS ORDERED: LOSA25 PO (10:56)
[2025-01-31] MEDS ORDERED: TICA90TA PO (10:57)
[2025-01-31] MEDS ORDERED: AMLO5 PO (10:58)
[2025-01-31] MEDS ORDERED: NITR.4SL SL (10:58)
[2025-01-31] MEDS ORDERED: OMEP20ER PO (11:00)
--- NOTE | 2025-01-31 11:36 | NUR ---
DISCHARGE NOTE: PATIENT IS ALERT AND OREINTED X4 & COOPERATIVE WITH HIS CARE. WENT OVER DISCHARGE PAPERWORK TO FOLLOW UP WITH ELECTRIC LIFT TRUCK DRIVER AND PRIMARY CARE PROVIDER. ALL NEW MEDICATIONS WERE SENT TO [facility] AND PATIENT TOOK ALL PERSONAL BELONGINGS & DISCHARGE PACKET. IV WAS TAKEN OUT & TELE TAKEN OFF. AT BEDSIDE AND WENT OVER INSTRUCTIONS WITH HER WELL. PATIENT WAS TAKEN OUT VIA WHEELCHAIR.
[2025-01-31] MEDS ORDERED: Carvedilol 3.125 MG Tab PO SCH (17:00)
[2025-01-31] MEDS ORDERED: Carvedilol 6.25 MG Tab PO SCH (17:00)
== END 2025-01-31 11:33 | disposition home or self-care (01) | DRG 322 ==
LOC: ER 19:26 → PCU 19:27 → ERHOLD 19:27 → PCU 01-30 01:00
PROVIDERS: Emergency Medicine; Family Medicine; Student in an Organized Health Care Education/Training Program; ADMIT Internal Medicine
PROC: 027135Z Dilation of Coronary Artery, Two Arteries with Two Drug-eluting Intraluminal Devices, Percutaneous Approach (ICD-10-PCS; principal; 2025-01-30)
PROC: B240ZZ3 Ultrasonography of Single Coronary Artery, Intravascular (ICD-10-PCS; 2025-01-30)
PROC: B2111ZZ Fluoroscopy of Multiple Coronary Arteries using Low Osmolar Contrast (ICD-10-PCS; 2025-01-30)
PROC: 4A023N7 Measurement of Cardiac Sampling and Pressure, Left Heart, Percutaneous Approach (ICD-10-PCS; 2025-01-30)
PROC: 4A033BC Measurement of Arterial Pressure, Coronary, Percutaneous Approach (ICD-10-PCS; 2025-01-30)
DX: I21.4 Non-ST elevation (NSTEMI) myocardial infarction (principal); I50.32 Chronic diastolic (congestive) heart failure; J44.9 Chronic obstructive pulmonary disease, unspecified; E78.00 Pure hypercholesterolemia, unspecified; I25.10 Atherosclerotic heart disease of native coronary artery without angina pectoris; K21.9 Gastro-esophageal reflux disease without esophagitis; I11.0 Hypertensive heart disease with heart failure; Z88.8 Allergy status to other drugs, medicaments and biological substances; Z79.82 Long term (current) use of aspirin; Z95.5 Presence of coronary angioplasty implant and graft; Z79.899 Other long term (current) drug therapy; Z79.891 Long term (current) use of opiate analgesic; Z87.74 Personal history of (corrected) congenital malformations of heart and circulatory system
CPT/HCPCS: 36415; 71046; 76937; 80048; 80053; 80061; 83036; 83690; 83735; 84484; 85025; 85347; 85520; 85610; 85730; 92978; 93005; 93010; 93306; 93458; 93571; 96374; 99152; 99153; 99285-25; A9270; C1725; C1753; C1769; C1874; C1887; C1894; C9600; G0378; J1644; J2250; J3010; J7030; J7050; Q9967